=== PATIENT | female | born 1965 | race African-American/Black ===

== ENCOUNTER 2017-03-25 13:50 | Emergency (ER) | payer OTHER ==
[2017-03-25] MEDS ORDERED: diphenhydrAMINE HCL 25 MG CAPSULE (FP) PO ONE ×3 (13:59→14:09)
[2017-03-25 14:08] VITALS: BP 153/88; PULSE 88; TEMP 98.8; BMI 23.9
--- NOTE | 2017-03-25 14:08 | PDOC ---
History of Present Illness - General Chief Complaint: Redness To Affected Area Stated Complaint: BEE STING TO LEFT LOWER EYLID Time Seen by Provider: 03/25/17 13:59 History Source: Patient Exam Limitations: No Limitations - History of Present Illness Initial Comments: 03/25/17 14:03 51 yo F with no pmhx here s/p bee sting to left eye. mild swelling. happened just prior to arrival. no f/c no chest pain no wheezing no tongue or lip swelling. no known bee allergy. did not take any medications prior to arrival. Past History - Past Medical History Allergies/Adverse Reactions: Allergies Allergy/AdvReac Type Severity Reaction Status Date / Time No Known Allergies Allergy Verified 03/25/17 13:59 Home Medications: Ambulatory Orders Albuterol Sulfate Inhaler - [Ventolin Hfa Inhaler -] 2 inh PO Q6H PRN 03/25/17 Amlodipine Besylate 10 mg PO DAILY 03/25/17 Aspirin [Aspirin EC] 81 mg PO DAILY 03/25/17 Hydrochlorothiazide [Hctz -] 12.5 mg PO DAILY 03/25/17 Review of Systems - Review of Systems Constitutional: No: Chills, Diaphoresis HEENTM: No: Eye Pain Respiratory: No: Cough, Orthopnea, Shortness of Breath, Wheezing Cardiac (ROS): No: Chest Pain, Edema ABD/GI: No: Abdominal Distended Musculoskeletal: Yes: Back Pain Integumentary: Yes: Other (mild swelling under left eye) Neurological: No: Numbness, Tingling All Other Systems: Reviewed and Negative *Physical Exam - Physical Exam General Appearance: Yes: Nourished, Appropriately Dressed HEENT: positive: Normal ENT Inspection, Other (mild left infraorbtal edema, EOMI , . no uvular edema, midline. ). negative: Pharyngeal Erythema, Tonsillar Exudate, Tonsillar Erythema, Nasal Congestion, Rhinorrhea Neck: positive: Trachea midline, Other (no tongue or lip swelling, no stridor) Respiratory/Chest: positive: Lungs Clear, Normal Breath Sounds. negative: Chest Tender, Respiratory Distress, Accessory Muscle Use, Wheezing Cardiovascular: positive: Regular Rhythm, Regular Rate, S1, S2 Gastrointestinal/Abdominal: positive: Normal Bowel Sounds. negative: Tender, Flat Integumentary: positive: Other (left eye infraorbital edema, mild erythema. no crepitus. eOMI.) Neurologic: positive: Fully Oriented, Alert, Normal Mood/Affect Medical Decision Making - Medical Decision Making 03/25/17 14:08 51 yo F s/p topical bee sting with no anaphylaxix sxs, mild local reaction. plan dc with benadryl ice packs and motrin for pain prn. warning sx for infection given to pt. *DC/Admit/Observation/Transfer Diagnosis at time of Disposition: Bee sting - Discharge Dispostion Disposition: HOME Condition at time of disposition: Improved Admit: No - Referrals Referrals: Joon Diggs [Primary Care Provider] - - Patient Instructions Printed Discharge Instructions: Insect Bites and Stings, How to Care for an Insect Bite or Sting Additional Instructions: you can apply ice packs three times daily for 20 min for next two days to avoid worsening swelling. you should take benadryl 25 mg every 6 hours as needed for itching swelling. you can take ibuprofen or advil 400 mg ( 2 regular strength tabs) every 8 hours as needed for pain. return for shortness of breath, worsening swelling, tongue or lip swelling or any concerns. should swelling get worse beyond 48 hours or you develop deep pain in the eye or fever return for repeat evaluation for infection. follow up with your doctor as needed. - Post Discharge Activity Work/School Note: Back to Work
== END 2017-03-25 14:18 | disposition home or self-care (01) ==
LOC: FER 13:50
DX: S00.262A Insect bite (nonvenomous) of left eyelid and periocular area, initial encounter (principal); W57.XXXA Bitten or stung by nonvenomous insect and other nonvenomous arthropods, initial encounter; Y93.89 Activity, other specified; Y92.9 Unspecified place or not applicable
CPT/HCPCS: 99281-25